=== PATIENT | female | born 1980 | race Two or more races ===

== ENCOUNTER 2017-05-27 23:33 | Emergency (ER) | payer OTHER ==
[~2017-05-27] VITALS: Ht 165.1 cm; Wt 86.1 kg
[2017-05-27 23:54] VITALS: BP 136/76
== END 2017-05-28 00:44 | disposition home or self-care (01) ==
LOC: ED 23:59
DX: F32.9 Major depressive disorder, single episode, unspecified (principal)
CPT/HCPCS: 99284